=== PATIENT | male | born 1990 | race Caucasian/White ===

== ENCOUNTER 2020-12-14 09:01 | Emergency (ER) | payer OTHER ==
--- NOTE | 2020-12-14 09:57 | ED Physician Documentation ---
PD HPI NVD - Stated complaint Stated Complaint: N/V - Chief complaint Chief Complaint: Abd Pain - History obtained from History obtained from: Patient - History of Present Illness Timing - onset: How many weeks ago (1) Timing - duration: Weeks (1) Timing - details: Abrupt onset (patient, and young daughter all sick together. No noted unusual foods. had been around some others with URI symptoms but not GE. Pt and with also diarrhea. for 2 days, patient for 4-5 days, but has had firming stool since yesterday. Both still with nausea and vomiting.) Associated symptoms: Abdominal pain (upper intermittent), Loss of appetite, Weight loss (mild). No: Fever, Near syncope / syncope Contributing factors: Sick contact ( and daughter also sick at same time so presume common source.). No: Bad food, Travel, Recent antibiotics Improved by: No: Vomiting, BM Worsened by: Eating Similar symptoms before: Has not had sx before Recently seen: Not recently seen Review of Systems Constitutional: reports: Fever (the first 1-2 days), Myalgias, Weight Loss (mild over a week) Nose: denies: Rhinorrhea / runny nose, Congestion Throat: denies: Sore throat Respiratory: denies: Cough GI: reports: Abdominal Pain (upper and mid with and after vomiting, not consistent.), Nausea (repeatedly the first 2 days, then intermittent with PO intake the past several days. Persistent nausea.), Vomiting : denies: Dysuria Skin: denies: Rash Musculoskeletal: denies: Back pain Neurologic: reports: Generalized weakness. denies: Near syncope, Altered mental status, Headache PD PAST MEDICAL HISTORY - Past Medical History Cardiovascular: None Respiratory: None Endocrine/Autoimmune: None GI: None - Present Medications Home Medications: Ambulatory Orders Medication Instructions Recorded Confirmed Famotidine [Pepcid] 20 mg PO BID #20 tablet 12/14/20 Ondansetron [Ondansetron Odt] 8 mg PO Q6H PRN #20 12/14/20 - Allergies Allergies/Adverse Reactions: Allergies Allergy/AdvReac Type Severity Reaction Status Date / Time No Known Drug Allergies Allergy Verified 12/14/20 09:17 PD ED PE NORMAL - Vitals Vital signs reviewed: Yes - General General: Alert and oriented X 3, Well developed/nourished, Other (appears uncomfortable due to nausea. ) - HEENT HEENT: PERRL (nonicteric), Pharynx benign. No: Moist mucous membranes - Neck Neck: Supple, no meningeal sign, No adenopathy - Cardiac Cardiac: RRR, No murmur - Respiratory Respiratory: Clear bilaterally - Abdomen Abdomen: Normal bowel sounds, Soft, Non distended, No organomegaly, Other (mild epigastric without guarding nor percussion tenderness. ) - Male Male : Deferred - Rectal Rectal: Deferred - Back Back: No CVA TTP - Derm Derm: Normal color, Warm and dry, No rash - Neuro Neuro: Alert and oriented X 3, No motor deficit, Normal speech Results - Vitals Vitals: Vital Signs - 24 hr 12/14/20 11:16 Heart Rate 62 Respiratory 19 Rate Blood Pressure 137/68 H O2 Saturation 100 Oxygen O2 Source Room air PD MEDICAL DECISION MAKING - ED course Complexity details: reviewed results ( and pt with similar symptoms and he does not like needles. Got LFTs on to ensure not hepatitic appearing process, and hers were normal. Presume his would be too. ), considered differential (3 family members sick together, presume common source. Pt with some exposure to others with URI symptoms but not GE. no obvious bad food source. Diarrhea has resolved so not as useful or needed for stool studies. Presume viral GE and now persistent gastritis symptoms. ), d/w patient, d/w family Departure - Departure Disposition: 01 Home, Self Care Clinical Impression: Nausea vomiting and diarrhea, Gastroenteritis, Acute gastritis Condition: Stable Instructions: ED Nausea Vomiting Follow-Up: ROMY PHILLIPS ARNP [Primary Care Provider] - Prescriptions: Ondansetron [Ondansetron Odt] 8 mg PO Q6H PRN #20 PRN Reason: Nausea / Vomiting Famotidine [Pepcid] 20 mg PO BID #20 tablet Comments: Sounds likely there had been a initial viral illness or consider possible food poisoning. The persistent symptoms now may be an irritated stomach (gastritis). I would have you try ondansetron every 6 hours if needed for nausea. Also famotidine acid reducing twice daily for the next week or 2. Recheck if not improved well over the next 2-3 days. Discharge Date/Time: 12/14/20 12:44
[2020-12-14] MEDS ORDERED: ONDANSETRON ODT 4 MG TABLET TL STA (10:23)
[2020-12-14] MEDS ORDERED: MAG HYDROX/AL HYDROX/SIMETH 30 ML UDC PO STA (10:23)
[2020-12-14] MEDS ORDERED: FAMOTIDINE 20 MG TABLET PO STA (10:23)
[2020-12-14 11:30] VITALS: BP 137/68
== END 2020-12-14 12:44 | disposition home or self-care (01) ==
LOC: ED 09:01
DX: K52.9 Noninfective gastroenteritis and colitis, unspecified (principal)
CPT/HCPCS: 99282; 99284; A9270; Q0162